=== PATIENT | female | born 1940 | race Caucasian/White ===

== ENCOUNTER 2017-09-17 23:25 | Observation (INO) | payer MEDICARE, OTHER ==
[2017-09-17 23:57] LABS: #Basophils 0.1 thou/uL (0.0-0.2); #Eosinphils 0.4 thou/uL (0.0-0.7); #Monocytes 0.6 thou/uL (0.11-0.59); #Neutrophils 5.9 thou/uL (1.40-6.50); %Basophils 1.4 % (0.0-1.0); %Eosinophils 4.3 % (0.0-10.0); %Lymphocytes 21.8 % (21.0-51.0); %Monocytes 7.1 % (0.0-10.0); %Neutrophils 65.4 % (42.0-75.0); Hemoglobin 11.7 g/dL (12.0-16.0); Mean Corpuscular HGB CONC 33.8 g/dL (32.0-36.0); Mean Corpuscular Volume 85.7 fl (81.0-99.0); Mean Platelet Volume 7.4 fL (7.4-10.4); Platelet Count 222 thou/uL (130-400); RBC Distribution Width 13.7 % (11.5-14.5); Red Blood Cell (RBC) Count 4.03 mill/uL (4.20-5.40)
[2017-09-18 00:13] LABS: CKMB 3.4 ng/mL (0-6.6); Troponin I 0.035 ng/mL (< 0.028)
[2017-09-18 00:17] LABS: ALT (SGPT) 13 U/L (8-55); AST (SGOT) 25 U/L (5-34); Albumin 3.8 g/dL (3.4-4.8); Alkaline Phosphatase 82 U/L (40-150); Anion Gap 15 mmol/L (10-20); BUN (Urea Nitrogen) 26 mg/dL (9.8-20.1); Bilirubin, Total 0.2 mg/dL (0.2-1.2); CK (CPK) 135 U/L (29-168); Calc. Creatinine Clearance 0 mL/min (70-130); Calcium 9.1 mg/dL (7.8-10.44); Carbon Dioxide 19 mmol/L (23-31); Chloride 108 mmol/L (98-107); Estimated GFR-MDRD Greater than 90; Globulin 2.4 g/dL (2.4-3.5); Glucose 93 mg/dL (83-110); Lipase 40 U/L (8-78); Potassium 4.2 mmol/L (3.5-5.1); Protein, Total 6.2 g/dL (6.0-8.3); Sodium 138 mmol/L (136-145)
[2017-09-18 01:46] LABS: Bilirubin Negative (Negative); Blood, Urine Negative (Negative); Clarity Clear (Clear); Glucose, Urine (Dipstick) Negative (Negative); Leukocyte Small (Negative); Nitrite Negative (Negative); Protein, Urine (Dipstick) Negative (Neg-Trace); Urobilinogen 0.2 mg/dL (0.2-1.0)
[2017-09-18 01:47] LABS: Specific Gravity, Urine 1.009 (1.002-1.036)
[2017-09-18 01:57] LABS: Bacteria/HPF None Seen HPF (None Seen); Hyaline Casts/LPF NONE SEEN LPF (0-3 Hyaline); RBC/HPF None Seen HPF (0-3); Renal Epithelial None Seen HPF (0-3); Squamous Epithelial 0-3 HPF (0-3); Transitional Epithelial 0-3 HPF (0-3)
[2017-09-18 03:07] VITALS: BMI 29.7
[2017-09-18 07:02] LABS: Troponin I 0.025 ng/mL (< 0.028)
--- NOTE | 2017-09-18 08:01 | HP ---
ADMITTING PHYSICIAN: Mitchel Fountain M.D. HISTORY OF PRESENT ILLNESS: The patient is a 77-year-old female who presented to the emergency room complaining of epigastric pain, maybe some chest pain radiating up to her chest. She felt lightheade d, felt somewhat woozy in the morning. Denied any nausea, vomiting, diarrhea. Upon arrival to the mergency room, she received 4 aspirin. She has not noted any further chest pain or discomfort. She has no prior history of atherosclerotic coronary artery disease. 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 She has never had any type of a stroke. She christianson s no significant cardiac risk factors, she is not hypertensive, nor does she suffer from hypercholest erolemia. Upon arrival to the ER, her first troponin was indeterminate, mildly elevated. Second troponin and t hird troponin were normal. EKG revealed normal sinus rhythm. At this time, she is not complaining o f any chest pain, no fever, no nausea, vomiting, diarrhea. ALLERGIES: She has no known allergies. CURRENT PRESCRIPTION MEDICATIONS: None. PAST MEDICAL HISTORY: Otherwise, negative for thyroid disease, type 2 diabetes, hypertension, hyperc holesterolemia. PAST SURGICAL HISTORY: Positive for hysterectomy, tonsillectomy, multiple joint replacement surgerie s. FAMILY HISTORY: Noncontributory. SOCIAL AND PERSONAL HISTORY: She is . She does not smoke nor does she drink alcohol. PHYSICAL EXAMINATION: VITAL SIGNS: Temperature 97.7, BP 167/79, O2 sat 97% on room air. GENERAL: She is alert, active, in no acute distress. HEENT: Normocephalic, atraumatic. Extraocular muscles are intact. Sclerae and conjunctivae are elvis ar. Throat clear. NECK: Supple, full range of motion, no masses, no bruits. LUNGS: Clear. HEART: Regular rate and rhythm without murmur, gallops or rubs. ABDOMEN: Reveals some mild right upper quadrant tenderness without evidence of rebound or guarding. NEUROLOGIC: She is alert and oriented x3. She is able to move all extremities. LABORATORY: Hemoglobin 11.7, hematocrit 34.5, sodium 138, potassium 4.2, chloride 108, CO2 19, BUN 2 6, creatinine 0.6. Initial troponin was 0.35, which was mildly elevated. They have now normalized. Urinalysis otherwise clear. Chest x-ray is clear. EKG reveals sinus rhythm. IMPRESSION: A 77-year-old female who is feeling lightheaded and woozy with some symptoms related to epigastric and lower chest pain. PLAN: We will do an EKG, Cardiolite stress test today. Further recommendations depending on the str ess test.
[2017-09-18] MEDS: Calcium Citrate 950 MG TAB PO SCH ×3 (08:16→17:08)
--- NOTE | 2017-09-18 08:39 | RAD ---
PORTABLE UPRIGHT FRONTAL CHEST: Date: 09/18/17 COMPARISON: 03/28/14. HISTORY: Headache, vertigo. FINDINGS: Incompletely assessed cervical spine hardware is present. Linear density in left base suggests mild v olume loss. Mild diffuse increased linear interstitial densities noted bilaterally, stable. No pneumo thorax, pleural fluid, focal consolidation, or alveolar edema. Elevation of bilateral humeral head suggests underlying rotator cuff tears. There is prominent bilate ral AC joint degenerative change. IMPRESSION: Chronic findings as described above. No focal consolidation or alveolar edema. POS: [facility]
[2017-09-18] MEDS ORDERED: FOLIC ACID PO SCH (09:00)
[2017-09-18] MEDS ORDERED: [UNRECOGNIZED DRUG - OTHER] PO SCH (09:00)
[2017-09-18] MEDS ORDERED: Aspirin 325 MG TAB PO SCH (09:00)
[2017-09-18] MEDS ORDERED: VITAMIN B COMPLEX PO SCH (09:00)
[2017-09-18] MEDS ORDERED: Stress 600 With Zinc 1 TAB PO SCH (09:00)
[2017-09-18] MEDS ORDERED: LECITHIN 1200 MG PO SCH (09:00)
[2017-09-18] MEDS ORDERED: ADENOSINE 60 MG/20 ML VIAL ONE (10:50)
[2017-09-18 15:34] VITALS: TEMP 97.5
--- NOTE | 2017-09-18 16:21 | NM ---
CARDIAC SPECT: CLINICAL HISTORY: 77-year-old female with chest pain, hypertension, diabetes, dyslipidemia. TECHNIQUE: A myocardial perfusion scan was performed using the single isotope one day protocol with technetium-9 9m sestamibi. 9 mCi were injected intravenously for the rest exam followed by 27 mCi for the stress e xam. Pharmacologic stress with Adenosine was monitored and interpreted by Diane Mittal NP. FINDINGS: Homogeneous tracer distribution is seen in the myocardial segments on stress and rest images without fixed or reversible defects. GATED SPECT LVEF: 69%. WALL MOTION EXAM: Normal. IMPRESSION: Normal myocardial perfusion scan. POS: [facility]
[2017-09-18] MEDS ORDERED: Amlodipine 5 MG TAB PO SCH (17:00)
[2017-09-18 18:27] VITALS: BP 152/71
[2017-09-18] MEDS ORDERED: Non-Formulary Item 1 EACH (Fish Oil/Dha/Epa [Fish Oil 1,200 Mg Fish Oil] 1 CAP) PO SCH (21:00)
[2017-09-18] MEDS ORDERED: Fish Oil 1,000 MG CAP PO SCH (21:00)
== END 2017-09-18 19:01 | disposition home or self-care (01) ==
LOC: SCSER 23:25 → 2SW 09-18 00:50
PROVIDERS: ADMIT Family Medicine; ATTEND Family Medicine
DX: R07.9 Chest pain, unspecified (principal); R10.13 Epigastric pain; R42 Dizziness and giddiness; Z79.899 Other long term (current) drug therapy
CPT/HCPCS: 71045; 78452; 80053; 82550; 82553; 83690; 83880; 84484 ×3; 85025; 93005; 93017; 94760; 99285; A9500; G0378; 36415; 81003; 81015; J0153

== ENCOUNTER 2018-04-02 10:01 | Outpatient (CLI) | payer MEDICARE, OTHER ==
--- NOTE | 2018-04-02 11:49 | RAD ---
FOUR VIEWS OF THE CERVICAL SPINE: Comparison: 10-16-15 History: Status post fusion of the cervical spine. FINDINGS: AP, lateral, swimmer's and open mouth odontoid views of the cervical spine were performed. Patient is status post fusion of C4 through C7. The previously seen plate and screws spanning C4 through C5 hav e been removed. There is a plate and screw spanning C6 and C7. Disc spacers are seen in intervening d isc spaces and appear in good position. Radiopaque structures are seen posteriorly which may represen t devices for fusion of the posterior facets. No prevertebral soft tissue swelling is seen. Residual due to degenerative change is seen at C2-3. IMPRESSION: Status post fusion of the cervical spine without evidence of complication. POS: [facility]
== END 2018-04-02 10:02 | disposition home or self-care (01) ==
LOC: TBSIIMAG 10:01
PROVIDERS: ATTEND Neurological Surgery
DX: M54.13 Radiculopathy, cervicothoracic region (principal); Z98.1 Arthrodesis status
CPT/HCPCS: 72040

== ENCOUNTER 2018-09-23 03:33 | Emergency (ER) | payer MEDICARE, OTHER | END 2018-09-23 04:03 | disposition home or self-care (01) | LOC: SCSER 03:33 | DX: Z48.00 Encounter for change or removal of nonsurgical wound dressing (principal); Z79.891 Long term (current) use of opiate analgesic | CPT/HCPCS: 99282 ==

== ENCOUNTER 2018-11-18 22:43 | Inpatient (IN) | payer MEDICARE, OTHER ==
[2018-11-18 23:48] LABS: #Lymphocytes 0.6 thou/uL (1.20-3.40); #Monocytes 0.8 thou/uL (0.11-0.59); #Neutrophils 10.6 thou/uL (1.40-6.50); %Basophils 0.4 % (0.0-1.0); %Eosinophils 0.1 % (0.0-10.0); %Lymphocytes 5.2 % (21.0-51.0); %Monocytes 6.5 % (0.0-10.0); %Neutrophils 87.9 % (42.0-75.0); Hemoglobin 14.4 g/dL (12.0-16.0); Mean Corpuscular Hemoglobin 30.1 pg (27.0-31.0); Mean Corpuscular Volume 91.2 fL (78.0-98.0); Mean Platelet Volume 8.3 fL (7.4-10.4); Platelet Count 201 thou/uL (130-400); RBC Distribution Width 13.1 % (11.5-14.5); Red Blood Cell (RBC) Count 4.78 mill/uL (4.20-5.40); White Blood Cell (WBC) Count 12.1 thou/uL (4.8-10.8)
--- NOTE | 2018-11-19 00:10 | RAD ---
FRONTAL RADIOGRAPH CHEST: 11/18/2018 HISTORY: Weakness. COMPARISON: 04/02/2018 FINDINGS: Stable heart and mediastinal contours. Stable cervical spine and right shoulder postoperative hardwa re. There is mild hyperinflation, stable. Heart and mediastinal contours are unchanged. No pneumot horax, pleural fluid, focal consolidation, or alveolar edema. IMPRESSION: No acute findings. POS: [facility]
[2018-11-19 00:12] LABS: ALT (SGPT) 15 U/L (8-55); AST (SGOT) 19 U/L (5-34); Albumin 4.1 g/dL (3.4-4.8); Alkaline Phosphatase 83 U/L (40-150); Anion Gap 17 mmol/L (10-20); BUN (Urea Nitrogen) 14 mg/dL (9.8-20.1); Bilirubin, Total 1.4 mg/dL (0.2-1.2); CK (CPK) 123 U/L (29-168); Calc. Creatinine Clearance 0 mL/min (70-130); Calcium 9.6 mg/dL (7.8-10.44); Carbon Dioxide 21 mmol/L (23-31); Chloride 104 mmol/L (98-107); Estimated GFR-MDRD Greater than 90; Globulin 2.3 g/dL (2.4-3.5); Glucose 133 mg/dL (83-110); Lipase 14 U/L (8-78); Potassium 3.5 mmol/L (3.5-5.1); Protein, Total 6.4 g/dL (6.0-8.3); Sodium 138 mmol/L (136-145)
[2018-11-19 00:33] LABS: CKMB 1.9 ng/mL (0-6.6)
[2018-11-19 01:00] LABS: Bacteria/HPF 2+ HPF (None Seen); Bilirubin Negative (Negative); Blood, Urine 2+ (Negative); Clarity Turbid (Clear); Glucose, Urine (Dipstick) Normal (Negative); Leukocyte 500 Leu/uL (Negative); Nitrite 2+ (Negative); Protein, Urine (Dipstick) 70 mg/dL (Neg-Trace); Squamous Epithelial None Seen HPF (0-3); Urobilinogen Normal mg/dL (Less than 2); WBC/HPF Greater than 50 HPF (0-3)
[2018-11-19] MEDS ORDERED: cefTRIAXone\\ROCEPHIN 1 GM VIAL ONE (01:18)
[2018-11-19] MEDS ORDERED: Sodium Chloride 0.9% 1,000 ML IV SCH (03:18)
[2018-11-19] MEDS ORDERED: Ondansetron PF 4 MG/2 ML Vial IVP PRN (03:18)
[2018-11-19] MEDS ORDERED: Ondansetron ODT 4 MG TAB SL PRN (03:18)
[2018-11-19 03:45] VITALS: BMI 28.7
--- NOTE | 2018-11-19 08:09 | ULT ---
PRELIMINARY REPORT/[facility]/EMERGENCY AFTER HOURS PROCEDURE: EXAM: US Duplex Bilateral Lower Extremity Veins EXAM DATE/TIME: 11/18/2018 11:44 PM CLINICAL HISTORY: 78 years old, female; Edema, localized; Lower extremity, bilateral; Leg, lower; Prior surgery; Surger y date: 6+ months; Surgery type: Ble knee replacement - 1996; Patient HX: Ble pain/edema; Additional info: Carpal tunnel surgery 10/09 TECHNIQUE: Imaging protocol: Real-time duplex ultrasound of the Bilateral Lower Extremities with 2-D joseph scale, color Doppler flow and spectral waveform analysis with image documentation. Complete exam focused on the bilateral lower extremity veins. COMPARISON: No relevant prior studies available. FINDINGS: Right deep veins: Unremarkable. The common femoral, femoral, proximal profunda femoral and popliteal veins are patent without thrombus. Normal Doppler waveforms. Normal compressibility and/or augmentati on response. Right superficial veins: Saphenofemoral junction is patent without thrombus. Left deep veins: Unremarkable. The common femoral, femoral, proximal profunda femoral and popliteal v eins are patent without thrombus. Normal Doppler waveforms. Normal compressibility and/or augmentatio n response. Left superficial veins: Saphenofemoral junction is patent without thrombus. Soft tissues: Superficial edema. IMPRESSION: 1. Superficial edema. 2. No DVT. Thank you for allowing us to participate in the care of your patient. Dictated and Authenticated by: Kaden Jarrett MD 11/19/2018 12:34 AM Central Time ([place] & [place]) FINAL REPORT BILATERAL LOWER EXTREMITY VENOUS DOPPLER ULTRASOUND: Date: 11/18/18 FINDINGS/IMPRESSION: I agree with the preliminary report given by Lenka. POS: [facility]
--- NOTE | 2018-11-19 10:48 | HP ---
HISTORY OF PRESENT ILLNESS: The patient is a 78-year-old white female, who presented to the emergency room, complains of lower extremity weakness, fever, body aches, and chills. She states she has became unable to walk due to being weak. She has some associated flushing, some nausea, discolored urine. No dysuria or hematuria, otherwise noted. She was seen and evaluated in the ER. Evaluation showed a diagnosis of urinary tract infection with greater than 50 wbc's per high-power field. Once again, she did not note any dysuria or hematuria. She did note extremely cloudy urine, some foul odor to her urine. She has been noting symptoms now for approximately 24 hours. Additionally, in the ER, she had an ultrasound done of her extremities, which showed no evidence of any DVT. She has had recent history of multiple surgeries including most recent surgery for her shoulder, but it has been uneventful recovery thus far. She denies any cough, sore throat, or vomiting. She has noted some slight diarrhea. No chest pain. No shortness of breath. Currently, at this time she states she is feeling much better. ALLERGIES: SHE HAS NO KNOWN ALLERGIES. PAST MEDICAL HISTORY: Positive for hypertension. PAST SURGICAL HISTORY: Positive for multiple orthopedic procedures including both bilateral knees, bilateral hip, left shoulder replacement. She has also had hysterectomy, tonsillectomy. FAMILY HISTORY: Noncontributory. REVIEW OF SYSTEMS: GASTROINTESTINAL: Negative. GENITOURINARY: Positive as above. PULMONARY: Negative. CARDIOVASCULAR: Otherwise, negative. NEUROLOGIC: Negative. PHYSICAL EXAMINATION: VITAL SIGNS: Temperature 99.1, blood pressure 158/70, pulse 86, respirations 18, and O2 saturations 95%. GENERAL: She is alert, active, sitting at the side of the bed. Does not appear in any distress. HEENT: Normocephalic. Sclerae and conjunctivae are clear. NECK: Supple. Full range of motion. No masses. No bruits auscultated. Thyroid is midline without thyromegaly or thyroid masses. LUNGS: Clear. HEART: Reveals a regular rate and rhythm. No murmurs, gallops, or rubs. ABDOMEN: Soft and nontender. Bowel sounds present and active. No hepatosplenomegaly is noted. EXTREMITIES: No clubbing. Trace edema bilaterally. No evidence of any significant leg tenderness, calf tenderness. LABORATORY DATA: White blood count 12.1, hemoglobin 14.4, and hematocrit 43.6. Sodium 135, potassium 3.5, chloride 104, CO2 of 21, BUN 14, and creatinine 0.61. Urinalysis, greater than 50 wbc's per high-power field, 2+ bacteria. IMAGING DATA: Chest x-ray is clear. IMPRESSION: Urinary tract infection with fever. PLAN: The patient will be admitted. Continue on IV Levaquin at this time, which she is currently on. I have discussed the findings with the patient and the need for hospitalization. Job ID: [id number]
--- NOTE | 2018-11-20 12:19 | PRG ---
DATE OF SERVICE: 11/20/2018 SUBJECTIVE: Ms. Todd is resting well. She has no medical complaints. OBJECTIVE: VITAL SIGNS: Temperature 99.3, BP 149/77, and O2 saturation 97%. LUNGS: Clear. HEART: Reveals no murmur. LABORATORY DATA: Her blood cultures are positive for gram-negative rods, presumptive E. coli. Urine culture is positive for presumptive E. coli. IMPRESSION: Urinary tract infection/sepsis. PLAN: Continue Levaquin. Awaiting susceptibility studies. Job ID: [id number]
[2018-11-21 07:50] VITALS: BP 162/83; TEMP 98.3
--- NOTE | 2018-11-21 10:02 | PRG ---
DATE OF SERVICE: 11/21/2018 SUBJECTIVE: Ms. Todd is doing well. She reports no fever, no chest pain, no shortness of breath. No nausea, vomiting, or diarrhea. Urine cultures are positive for E coli. Blood culture is also positive for E coli, sensitive to Levaquin, which she is currently on. OBJECTIVE: LUNGS: Clear. HEART: Reveals a regular rate and rhythm. No murmurs, gallops, or rubs. IMPRESSION: Urinary tract infection with sepsis. PLAN: She can be discharged home safely today on Levaquin 500 mg p.o. daily. Job ID: [id number]
--- NOTE | 2018-11-21 10:51 | DIS ---
DATE OF ADMISSION: 11/19/2018 DATE OF DISCHARGE: 11/21/2018 DISCHARGE DIAGNOSIS: Urinary tract infection with sepsis. HOSPITAL SUMMARY: The patient is a 78-year-old female who presented to the emergency room complaining of fever, body aches, and chills. She was found to have urinary tract infection. Blood cultures were obtained as well as urine cultures. Urine culture was positive for E coli, sensitive to quinolone antibiotic. She was actually placed on IV Levaquin. Her blood culture was positive during her hospitalization. She did not run any further fever. No other findings were noted. She was discharged home safely on 11/21/2018 on Levaquin 500 mg daily. She will follow up with me in 7 days. Job ID: [id number]
== END 2018-11-21 11:08 | disposition home or self-care (01) | DRG 872 ==
LOC: ERS 22:43 → T4-B 11-19 02:54
PROVIDERS: ADMIT Family Medicine; ATTEND Family Medicine
DX: A41.51 Sepsis due to Escherichia coli [E. coli] (principal); N39.0 Urinary tract infection, site not specified; Z16.23 Resistance to quinolones and fluoroquinolones; I10 Essential (primary) hypertension; Z90.710 Acquired absence of both cervix and uterus; Z79.82 Long term (current) use of aspirin; Z79.899 Other long term (current) drug therapy
CPT/HCPCS: 36415; 71045; 80053; 81003; 81015; 82550; 82553; 83605; 83690; 83880; 84484; 85025; 87040; 87077; 87086; 87149; 87186; 93005; 93970; A4353; J0696; J1956

== ENCOUNTER 2019-03-07 17:07 | Inpatient (IN) | payer MEDICARE ==
[2019-03-07 18:13] LABS: Bilirubin Negative (Negative); Blood, Urine Large (Negative); Clarity Hazy (Clear); Glucose, Urine (Dipstick) Negative (Negative); Leukocyte Small (Negative); Nitrite Positive (Negative); Protein, Urine (Dipstick) > or equal to 300 mg/dL (Neg-Trace); Urobilinogen 0.2 mg/dL (Less than 2)
[2019-03-07] MEDS ORDERED: Acetaminophen 500 MG TAB ONE (18:17)
[2019-03-07 18:19] LABS: Bacteria/HPF 4+ HPF (None Seen); WBC/HPF 21-50 HPF (0-3)
--- NOTE | 2019-03-07 18:34 | RAD ---
PA AND LAERAL VIEWS CHEST: 03/07/19 HISTORY: Fever and UTI. FINDINGS: Comparison made with exam of 03/28/14. The heart size is borderline. The aorta is tortuous. The lungs are expanded without lobar consolidati on, pneumothoraces or pleural effusions. There are postop changes in the right shoulder and there are degenerative changes in the spine. IMPRESSION: No acute process. POS: [facility]
[2019-03-07 18:56] LABS: Hemoglobin 14.1 g/dL (12.0-16.0); Mean Corpuscular HGB CONC 31.9 g/dL (32.0-36.0); Mean Corpuscular Hemoglobin 28.5 pg (27.0-31.0); Mean Corpuscular Volume 89.2 fL (78.0-98.0); Mean Platelet Volume 12.1 fL (7.4-10.4); Platelet Count 178 thou/uL (130-400); RBC Distribution Width 12.7 % (11.5-14.5); Red Blood Cell (RBC) Count 4.95 mill/uL (4.20-5.40); White Blood Cell (WBC) Count 12.5 thou/uL (4.8-10.8)
[2019-03-07] MEDS ORDERED: cefTRIAXone\\ROCEPHIN 2 GM VIAL ONE (18:56)
[2019-03-07] MEDS ORDERED: Water For Inject, Bacteriostat 30 ML ONE (18:57)
[2019-03-07 19:07] LABS: ALT (SGPT) 15 U/L (8-55); AST (SGOT) 21 U/L (5-34); Alkaline Phosphatase 88 U/L (40-110); Anion Gap 16 mmol/L (10-20); BUN (Urea Nitrogen) 19 mg/dL (9.8-20.1); Bilirubin, Total 0.7 mg/dL (0.2-1.2); Calc. Creatinine Clearance 0 mL/min (70-130); Calcium 9.4 mg/dL (7.8-10.44); Carbon Dioxide 21 mmol/L (23-31); Chloride 101 mmol/L (98-107); Estimated GFR-MDRD 76; Glucose 124 mg/dL (83-110); Potassium 3.8 mmol/L (3.5-5.1); Sodium 134 mmol/L (136-145)
[2019-03-07 19:10] LABS: #Basophils 0.1 thou/uL (0.0-0.2); #Lymphocytes 0.7 thou/uL (1.20-3.40); #Monocytes 0.9 thou/uL (0.11-0.59); #Neutrophils 10.8 thou/uL (1.40-6.50); %Basophils 0.7 % (0.0-1.0); %Eosinophils 0.1 % (0.0-10.0); %Lymphocytes 5.9 % (21.0-51.0); %Neutrophils 86.4 % (42.0-75.0); Large Platelets SLIGHT; MDiff Complete? YES; Platelet Morphology Comment Appears Adequate; RBC Morphology Normal
[2019-03-07] MEDS ORDERED: Gentamicin 80 MG/2 ML VIAL ONE (19:41)
[2019-03-07] MEDS ORDERED: Acetaminophen 325 MG TAB PO PRN (21:56)
[2019-03-07] MEDS ORDERED: Ondansetron PF 4 MG/2 ML Vial IVP PRN (21:56)
[2019-03-07] MEDS ORDERED: Ondansetron ODT 4 MG TAB SL PRN (21:56)
[2019-03-07 22:10] VITALS: BMI 29.6
[2019-03-08] MEDS ORDERED: Ondansetron ODT 4 MG TAB PO PRN (00:15)
[2019-03-08] MEDS ORDERED: Ondansetron PF 4 MG/2 ML Vial IVP PRN (00:15)
[2019-03-08] MEDS: Sodium Chloride 0.9% 1,000 ML IV SCH ×3 (00:29→12:40)
--- NOTE | 2019-03-08 01:16 | HP ---
PRIMARY CARE PROVIDER: Dr. Mitchel Fountain. CHIEF COMPLAINT: Dark urine and fever. HISTORY OF PRESENT ILLNESS: This is a 78-year-old female, who presented to [facility] Emergency Department after initially presenting to [facility] Emergency Room with dysuria, malodorous urine, and fever. The patient states she noted a temperature of 101 degrees Fahrenheit when she was at a physician's office in [place]. The patient noted darkened urine approximately 2 weeks prior to this evaluation with persistent malodorous component. The patient denied any change to her bowel habits, recent trauma, injury, or family members with similar symptoms. The patient states she was admitted in November 2018 for sepsis secondarily to urinary tract infection and treated with IV Levaquin. The patient did not take any home medications or remedies, and presented to the emergency room for evaluation. In the emergency room, the patient underwent evaluation with urinalysis concerning for infectious process. The patient met sepsis criteria and received intravenous normal saline in addition to gentamicin, vancomycin and Rocephin. PAST MEDICAL HISTORY: 1. Recurrent urinary tract infections. 2. Question of hypertension without current treatment. PAST SURGICAL HISTORY: 1. Status post bilateral total knee arthroplasty. 2. Status post bilateral total hip arthroplasty. 3. Status post left shoulder replacement. 4. Status post hysterectomy. 5. Status post tonsillectomy. CURRENT MEDICATIONS: Aspirin 81 mg p.o. at bedtime. ALLERGIES: NO KNOWN DRUG ALLERGIES. FAMILY HISTORY: No inheritable disease per patient report. SOCIAL HISTORY: Resides in [place], [place]. . No current alcohol, tobacco, or illicit drug use. Retired. REVIEW OF SYSTEMS: CONSTITUTIONAL: Negative for weight loss or gain, ability to conduct usual activities. SKIN: Negative for rash, itching. EYES: Negative for double vision, pain. ENT/MOUTH: Negative for nose bleeding, neck stiffness, pain, tenderness. CARDIOVASCULAR: Negative for palpitations, dyspnea on exertion, orthopnea. RESPIRATORY: Negative for shortness of breath, wheezing, cough, hemoptysis, fever or night sweats. GASTROINTESTINAL: Negative for poor appetite, abdominal pain, heartburn, nausea, vomiting, constipation, or diarrhea. GENITOURINARY: Negative for urgency, frequency, dysuria, nocturia. MUSCULOSKELETAL: Negative for pain, swelling. NEUROLOGIC/PSYCHIATRIC: Negative for anxiety, depression. ALLERGY/IMMUNOLOGIC: Negative for skin rash, bleeding tendency. Otherwise negative except as stated per HPI. PHYSICAL EXAMINATION: VITAL SIGNS: On admission, blood pressure 183/101, pulse 95, respiratory rate 31, temperature 103.4 degrees Fahrenheit rectally. GENERAL APPEARANCE: This is a 78-year-old female, alert and oriented x3, pleasant, in mild distress. HEENT: Pupils are equal, round, reactive to light and accommodation. Extraocular muscles are intact. No scleral icterus. No conjunctival injection. Nares patent. OP is clear. Oral mucosa is dry. NECK: Supple. No cervical adenopathy. No thyromegaly. No carotid bruits. No JVD appreciated. Cervical spine with full active and passive range of motion. No meningeal signs noted. CHEST: Lungs are clear to auscultation bilaterally. CARDIOVASCULAR: S1, S2 without noted murmur, rub, or gallop. ABDOMEN: Rounded, soft, nontender, and nondistended. Bowel sounds are positive in all 4 quadrants. There is no hepatosplenomegaly. No abdominal bruits. No rebound or guarding appreciated. EXTREMITIES: Warm and dry with fair turgor. No clubbing, cyanosis, or asymmetric edema appreciated. Pulses palpable distally at the dorsalis pedis, posterior tibial, and popliteal arteries bilaterally. Capillary refill less than 2 seconds. NEUROLOGIC: Cranial nerves 2 through 12 are grossly intact. No focal or lateralizing signs appreciated. PERTINENT LABORATORY AND X-RAY FINDINGS: Sodium 134, potassium 3.8, chloride 101, CO2 of 21, BUN 19, creatinine 0.74, estimated GFR 76, glucose 124, lactic acid level 1.5. LFTs within normal limits. CBC showed a white blood cell count of 12.5, hemoglobin 14, hematocrit 44, platelet count 178 with 86% neutrophils. Urinalysis is positive for protein, blood, nitrite and leukocyte esterase, 21 to 50 wbc's per high-power field with 4+ bacteria. Portable chest x-ray dated 03/07/2019, showed no acute cardiopulmonary process. ASSESSMENT AND PLAN: 1. Sepsis secondary to urinary tract infection. The patient will be admitted to the medical floor. We will continue IV Rocephin 2 g q.24 hours with additional vancomycin 1.25 g IV q.12 hours. Blood and urine cultures pending. Continue general sepsis protocol. Continue IV fluids with normal saline at 100 mL/h. 2. Acute kidney injury. Suspect secondary to sepsis and volume depletion. Continue IV fluids as outlined previously. Avoid nephrotoxic agents and limit contrast exposure. Repeat creatinine in the a.m. 3. Dehydration. Continue IV fluids as outlined previously. Encourage increased p.o. free water intake. 4. Hyponatremia. Mild. Continue IV fluids as outlined previously. Serial sodium monitoring. 5. Prophylaxis. SCDs while in bed. Pepcid 20 mg p.o. b.i.d. CODE STATUS: Full. Surrogate medical decision maker is the patient's spouse. Job ID: [id number]
[2019-03-08 06:54] LABS: Anion Gap 8 mmol/L (10-20); BUN (Urea Nitrogen) 33 mg/dL (9.8-20.1); Calc. Creatinine Clearance 91 mL/min (70-130); Calcium 8.1 mg/dL (7.8-10.44); Carbon Dioxide 24 mmol/L (23-31); Chloride 108 mmol/L (98-107); Estimated GFR-MDRD Greater than 90; Glucose 118 mg/dL (83-110); Potassium 3.2 mmol/L (3.5-5.1); Sodium 137 mmol/L (136-145)
[2019-03-08 07:51] LABS: Eosinophils 2 % (0-10); Hemoglobin 11.3 g/dL (12.0-16.0); Lymphocytes 2 % (21-51); MDiff Complete? YES; Mean Corpuscular HGB CONC 33.4 g/dL (32.0-36.0); Mean Corpuscular Hemoglobin 29.7 pg (27.0-31.0); Mean Corpuscular Volume 88.7 fL (78.0-98.0); Mean Platelet Volume 8.4 fL (7.4-10.4); Monocytes 7 % (0-10); Neutrophil 85 % (42-75); Platelet Count 146 thou/uL (130-400); RBC Distribution Width 12.2 % (11.5-14.5); Reactive Lymphocytes 4 % (0-10); White Blood Cell (WBC) Count 8.5 thou/uL (4.8-10.8)
[2019-03-08] MEDS: Famotidine 20 MG TAB PO SCH ×2 (08:02→20:18)
[2019-03-08] MEDS ORDERED: Vancomycin HCl 1.25 GM in Sodium Chloride 0.9% 250 ML 300 ML IVPB SCH (09:00)
[2019-03-08] MEDS ORDERED: Potassium Chloride 20 MEQ TAB PO SCH (12:30)
--- NOTE | 2019-03-08 13:02 | PDOC.HOSPP ---
- Subjective Encounter Date: 03/08/19 Encounter Time: 10:30 Subjective: pt up in bed no complains. Feels well - Objective Vital Signs & Weight: Vital Signs (12 hours) Temp Pulse Resp BP Pulse Ox 03/08/19 11:47 98.8 F 79 18 149/80 H 03/08/19 07:48 98.1 F 82 16 167/83 H 98 03/08/19 04:15 98.8 F 81 19 147/78 H 97 Weight Admit Weight 167 lb 1.6 oz Weight 167 lb 1.6 oz I&O: 03/07/19 03/08/19 03/09/19 06:59 06:59 06:59 Intake Total 1240 Balance 1240 Result Diagrams: 03/08/19 06:27 03/08/19 06:27 Hospitalist ROS - Review of Systems Respiratory: denies: cough, dry, shortness of breath, hemoptysis, SOB with excertion, pleuritic pain, sputum, wheezing, other Cardiovascular: denies: chest pain, palpitations, orthopnea, paroxysmal noc. dyspnea, edema, light headedness, other Gastrointestinal: denies: nausea, vomiting, abdominal pain, diarrhea, constipation, melena, hematochezia, other - Medication Medications: Active Medications Generic Name Dose Route Start Last Admin Trade Name Freq PRN Reason Stop Dose Admin Famotidine 20 mg 03/08/19 09:00 03/08/19 08:02 Pepcid PO 20 mg BID VANESA Administration Sodium Chloride 1,000 mls @ 100 mls/hr 03/08/19 00:15 03/08/19 12:40 Normal Saline 0.9% IV 1,000 mls .Q10H VANESA Administration Potassium Chloride 40 meq 03/08/19 12:30 03/08/19 12:39 K-Dur PO 03/08/19 15:00 40 meq NOW VANESA Administration - Exam Heart: negative: RRR, no murmur, no gallops, no rubs, normal peripheral pulses, irregular, diminshed peripheral pulses, murmur present, II/IV, III/IV Respiratory: negative: CTAB, no wheezes, no rales, no ronchi, normal chest expansion, no tachypnea, normal percussion, rales, rhonchi, tachypneic, wheezes Gastrointestinal: negative: soft, non-tender, non-distended, normal bowel sounds , no palpable masses, no hepatomegaly, no splenomegaly, no bruit, no guarding, no rigidity, tender to palpation, distended, diminished bowl sounds, voluntary guarding Hosp A/P (1) Sepsis Code(s): A41.9 - SEPSIS, UNSPECIFIED ORGANISM Status: Acute (2) UTI (urinary tract infection) Status: Acute (3) Bacteremia Code(s): R78.81 - BACTEREMIA Status: Acute - Plan will continue abx. Her previous cx indicates ecoli. will continue iv fluids too.
[2019-03-08] MEDS: Acetaminophen 500 MG TAB PO PRN (16:28)
[2019-03-08] MEDS: cefTRIAXone\\ROCEPHIN 2 GM in Sodium Chloride 0.9% 100 ML IVPB SCH (17:10)
[2019-03-08] MEDS ORDERED: Vancomycin HCl 1.25 GM in Sodium Chloride 0.9% 250 ML 250 ML IVPB SCH (20:00)
[2019-03-08] MEDS: Aspirin 81 mg Enteric Coated Tablet PO SCH (20:18)
[2019-03-09] MEDS: Sodium Chloride 0.9% 1,000 ML IV SCH (00:41)
[2019-03-09] MEDS: Famotidine 20 MG TAB PO SCH ×2 (07:44→21:08)
--- NOTE | 2019-03-09 11:41 | PDOC.HOSPP ---
- Subjective Encounter Date: 03/09/19 Encounter Time: 11:15 Subjective: pt up in bed no complains - Objective Vital Signs & Weight: Vital Signs (12 hours) Temp Pulse Resp BP BP Pulse Ox 03/09/19 07:37 98.3 F 81 18 174/93 H 97 03/09/19 07:26 98.3 F 81 18 97 03/09/19 04:00 98.2 F 71 18 143/85 H 98 03/09/19 00:00 98.7 F 68 18 157/81 H 99 Weight Admit Weight 167 lb 1.6 oz Weight 167 lb 1.6 oz I&O: 03/08/19 03/09/19 03/10/19 06:59 06:59 06:59 Intake Total 1240 3140 Balance 1240 3140 Result Diagrams: 03/08/19 06:27 03/08/19 06:27 Hospitalist ROS - Review of Systems Cardiovascular: denies: chest pain, palpitations, orthopnea, paroxysmal noc. dyspnea, edema, light headedness, other Gastrointestinal: denies: nausea, vomiting, abdominal pain, diarrhea, constipation, melena, hematochezia, other - Medication Medications: Active Medications Generic Name Dose Route Start Last Admin Trade Name Freq PRN Reason Stop Dose Admin Acetaminophen 1,000 mg 03/08/19 00:15 03/08/19 16:28 Tylenol PO 1,000 mg Q6H PRN Administration Mild Pain (1-3) Aspirin 81 mg 03/08/19 21:00 03/08/19 20:18 Ecotrin PO 81 mg HS VANESA Administration Famotidine 20 mg 03/08/19 09:00 03/09/19 07:44 Pepcid PO 20 mg BID VANESA Administration Ceftriaxone Sodium 2 gm/ 100 mls @ 200 mls/hr 03/08/19 18:00 03/08/19 17:10 Sodium Chloride IVPB 100 mls Q24HR VANESA Administration - Exam Neck: negative: supple, symmetric, no JVD, no thyromegaly, no lymphadenopathy, no carotid bruit, JVD Heart: negative: RRR, no murmur, no gallops, no rubs, normal peripheral pulses, irregular, diminshed peripheral pulses, murmur present, II/IV, III/IV Respiratory: negative: CTAB, no wheezes, no rales, no ronchi, normal chest expansion, no tachypnea, normal percussion, rales, rhonchi, tachypneic, wheezes Hosp A/P (1) Sepsis Code(s): A41.9 - SEPSIS, UNSPECIFIED ORGANISM Status: Acute (2) UTI (urinary tract infection) Status: Acute (3) Bacteremia Code(s): R78.81 - BACTEREMIA Status: Acute - Plan will continue abx. Her previous cx indicates ecoli. will continue iv fluids too. 03/09 pt may go home in am when her sensitive comes back.will stop abx
[2019-03-09] MEDS: Acetaminophen 500 MG TAB PO PRN (17:10)
[2019-03-09] MEDS: cefTRIAXone\\ROCEPHIN 2 GM in Sodium Chloride 0.9% 100 ML IVPB SCH (17:11)
[2019-03-09] MEDS: hydrALAZINE 20 MG/ML VIAL SLOW IVP PRN (17:32)
[2019-03-09] MEDS: Aspirin 81 mg Enteric Coated Tablet PO SCH (21:08)
[2019-03-10] MEDS: Acetaminophen 500 MG TAB PO PRN (07:53)
[2019-03-10] MEDS: hydrALAZINE 20 MG/ML VIAL SLOW IVP PRN (07:53)
[2019-03-10] MEDS: Famotidine 20 MG TAB PO SCH (07:53)
[2019-03-10] MEDS ORDERED: Amlodipine 5 MG TAB PO SCH (09:00)
[2019-03-10] MEDS ORDERED: Ciprofloxacin 500 MG TAB PO SCH ×2 (09:00→20:00)
[2019-03-10 13:15] VITALS: BP 170/78; TEMP 98.2
--- NOTE | 2019-03-10 19:45 | DIS ---
DATE OF ADMISSION: 03/07/2019 DATE OF DISCHARGE: 03/10/2019 PRIMARY CARE PROVIDER: Dr. Mitchel Fountain. DISCHARGE DIAGNOSES: 1. Sepsis. 2. Urinary tract infection. 3. Bacteremia. 4. Dehydration. 5. Hyponatremia. 6. Hypertensive urgency. CONDITION OF PATIENT ON THE DAY OF DISCHARGE: Stable. I assessed Ms. Todd on the day of discharge. She denies any chest pain or shortness of breath. Vital signs are stable. S1 and S2 are heard, regular. Lungs are clear to auscultation bilaterally. HOSPITAL COURSE: Ms. Todd is a pleasant 78-year-old lady, who was admitted to [facility] on 03/07/2019, for recurrent urinary tract infections. Please refer to Dr. Reardon's history and physical note dated 03/08/2019, for further details. She was treated with intravenous ceftriaxone. Preliminary urine culture is growing a gram-negative aileen. 1/2 blood cultures was positive for Escherichia coli; resistant to ampicillin, ampicillin/sulbactam, and Bactrim; intermediate sensitivity to levofloxacin and sensitive to amikacin, cefepime, cefoxitin, ceftazidime, ceftriaxone, ciprofloxacin, gentamicin, meropenem, Zosyn, and tobramycin. She is being discharged home on ciprofloxacin for 10 more days. She has been advised to follow up with primary care provider in 3 to 5 days' time for final blood culture and urine culture reports and for reassessment. Her blood pressures were elevated during this hospitalization. She has been started on amlodipine. She has also been advised to check her blood pressure and heart rate 3 times a day and show the readings to primary care provider. DISCHARGE MEDICATIONS: 1. Aspirin 81 mg daily. 2. Amlodipine 5 mg daily. 3. Ciprofloxacin 500 mg 2 times a day for 10 days. POST-DISCHARGE FOLLOWUP: The patient is advised to follow up with primary care provider in 3 to 5 days' time. ACTIVITY: No restrictions. DIET: Regular diet. DISCHARGE DESTINATION: Home. TIME SPENT: Total amount of time spent coordinating this discharge: 20 minutes. Job ID: [id number]
== END 2019-03-10 13:30 | disposition home or self-care (01) | DRG 872 ==
LOC: SCSER 17:07 → T4-B 21:52
PROVIDERS: ADMIT Internal Medicine; ATTEND Internal Medicine
DX: A41.51 Sepsis due to Escherichia coli [E. coli] (principal); N17.9 Acute kidney failure, unspecified; E87.1 Hypo-osmolality and hyponatremia; Z96.653 Presence of artificial knee joint, bilateral; Z96.643 Presence of artificial hip joint, bilateral; E86.0 Dehydration; I16.0 Hypertensive urgency; Z90.710 Acquired absence of both cervix and uterus; Z79.82 Long term (current) use of aspirin
CPT/HCPCS: 36415; 71046; 80048; 80053; 81003; 81015; 83605; 85007; 85025; 85027; 87040; 87077; 87086; 87149; 87186; 96365; 96367; 96368; J0360; J0696; J1580; J3370; J3490; J7050

== ENCOUNTER 2019-07-01 07:11 | Day surgery (SDC) | payer MEDICARE ==
[2019-06-30 10:27] VITALS: BMI 28.8
[~2019-07-01 07:11] MED LIST: FLU VACC TS2019-20(65YR UP)/PF 180 MCG/0.5 ML SYRINGE IM ONE
[2019-07-01 08:41] VITALS: TEMP 98.4
--- NOTE | 2019-07-01 10:21 | RAD ---
Lumbar puncture with fluoroscopic guidance: 07/01/2019 HISTORY: Neuropathy, possible multiple sclerosis FINDINGS: Informed consent for lumbar puncture obtained prior to the procedure. Frontal and lateral polymerization engineer imaging demonstrates bilateral pedicle screws at the L2 and L3 levels. Inte rvertebral metallic disc devices are present at L4-5 and L5-S1. There is anterolisthesis of L4 on L5 measuring approximately 1 cm. There is multilevel bone graft material within the lumbar spine post eriorly/laterally. There is also multilevel prominent degenerative disc disease with multilevel disc space narrowing and prominent osteophyte formation throughout the imaged lower thoracic spine an d upper lumbar spine. The patient was placed on the fluoroscopic table in the oblique prone position and skin overlying the lumbar spine was prepped and draped in normal sterile fashion. The skin was anesthetized with 1% buffered lidocaine at the L3 level. With intermittent fluoroscopic guidance, a 20-gauge spinal needle was advanced into the thecal sac and removal of the stylet yields clear cerebrospinal fluid. Approximately 15 cc were obtained and sent to the laboratory for assessment. The patient tolerated the procedure well. Exposure data: 1.0 minute of fluoroscopic time, 464.4 mcg/sq m IMPRESSION: Successful lumbar puncture with fluoroscopic guidance.
[2019-07-01 10:54] LABS: CSF, Glucose 62 mg/dl (40-70); CSF, Protein 82 mg/dL (15-40)
[2019-07-01 11:17] LABS: CSF Source CSF; Clarity Clear (Clear); Tube # 4
[2019-07-01 11:23] LABS: WBC/NonHematics Count - Manual 0 /cumm (0-5)
[2019-07-01 11:28] LABS: RBC Count - Manual 65 /cumm (None Seen)
[2019-07-01 14:47] LABS: Ref Lab Test Ordered CSF ELECTROPHORESIS; Reference Lab Name LABCORP
[2019-07-01 14:49] LABS: Reference Lab Name LABCORP
[2019-07-01 14:50] LABS: Ref Lab Test Ordered IGG INDEX /SYNT RATE
[2019-07-01 17:46] LABS: Color Of CSF Supernatant COLORLESS (Colorless); Tube # 1; Unspun CSF Color COLORLESS (Colorless)
== END 2019-07-01 10:55 | disposition home or self-care (01) ==
LOC: RAD 07:11
PROVIDERS: ATTEND Psychiatry & Neurology Neurology
PROC: 009U3ZZ Drainage of Spinal Canal, Percutaneous Approach (ICD-10-PCS; principal; 2019-07-01)
DX: G60.9 Hereditary and idiopathic neuropathy, unspecified (principal); Z79.82 Long term (current) use of aspirin
CPT/HCPCS: 36415; 62270; 82945; 83916; 84157; 84165; 89051

== ENCOUNTER 2019-07-27 15:24 | Observation (INO) | payer MEDICARE ==
[~2019-07-27 15:24] MED LIST changes: -FLU VACC TS2019-20(65YR UP)/PF 180 MCG/0.5 ML SYRINGE IM ONE; +Iopamidol-370 76% 500 ML 1 ML ONE
[2019-07-27] MEDS ORDERED: Cefepime 2 GM VIAL ONE (15:46)
[2019-07-27] MEDS ORDERED: Vancomycin 1 GM/200 ML BAG ONE (15:46)
[2019-07-27 16:08] LABS: #Basophils 0.1 thou/uL (0.0-0.2); #Eosinphils 0.5 thou/uL (0.0-0.7); #Lymphocytes 1.5 thou/uL (1.20-3.40); #Monocytes 1.1 thou/uL (0.11-0.59); #Neutrophils 8.7 thou/uL (1.40-6.50); %Basophils 0.5 % (0.0-1.0); %Eosinophils 4.3 % (0.0-10.0); %Lymphocytes 12.5 % (21.0-51.0); %Monocytes 8.9 % (0.0-10.0); %Neutrophils 73.8 % (42.0-75.0); Hemoglobin 12.1 g/dL (12.0-16.0); Mean Corpuscular HGB CONC 32.3 g/dL (32.0-36.0); Mean Corpuscular Volume 86.5 fL (78.0-98.0); Mean Platelet Volume 7.3 fL (7.4-10.4); Platelet Count 427 thou/uL (130-400); RBC Distribution Width 14.4 % (11.5-14.5); Red Blood Cell (RBC) Count 4.32 mill/uL (4.20-5.40); White Blood Cell (WBC) Count 11.8 thou/uL (4.8-10.8)
[2019-07-27 16:23] LABS: ALT (SGPT) 23 U/L (8-55); AST (SGOT) 28 U/L (5-34); Albumin 3.6 g/dL (3.4-4.8); Alkaline Phosphatase 94 U/L (40-110); Anion Gap 14 mmol/L (10-20); BUN (Urea Nitrogen) 14 mg/dL (9.8-20.1); Bilirubin, Total 0.3 mg/dL (0.2-1.2); Calc. Creatinine Clearance 0 mL/min (70-130); Calcium 9.4 mg/dL (7.8-10.44); Carbon Dioxide 24 mmol/L (23-31); Chloride 104 mmol/L (98-107); Estimated GFR-MDRD Greater than 90; Globulin 3.5 g/dL (2.4-3.5); Glucose 96 mg/dL (83-110); Potassium 3.8 mmol/L (3.5-5.1); Protein, Total 7.1 g/dL (6.0-8.3); Sodium 138 mmol/L (136-145)
--- NOTE | 2019-07-27 18:14 | CT ---
CT OF RIGHT TIBIA/FIBULA PERFORMED WITH CONTRAST ENHANCEMENT: History: Patient has a right leg wound that has not been healing well. The redness and swelling has w orsened. More drainage from the wound. FINDINGS: Imaging was begun just at the level of the distal femur. A total knee prosthesis obscures detail in t his region. There is subcutaneous edema change consistent with cellulitis type changes which actually appear fairly similar to the visualized portion of the opposite extremity. I see no signs of an absc ess collection. Soft tissue wound is seen along the lateral aspect of the ankle region. I see no evid ence for osteomyelitis. There is somewhat generalized muscle atrophy but no signs for compartment syn drome. IMPRESSION: Cellulitis changes. No abscess or air within the soft tissues. POS: EULALIO
[2019-07-27] MEDS ORDERED: Acetaminophen 325 MG TAB PO PRN (20:47)
[2019-07-27] MEDS ORDERED: Acetaminophen 650 MG Suppository PR PRN (20:47)
--- NOTE | 2019-07-27 21:19 | PDOC.HHP ---
Hospitalist HPI - History of Present Illness right leg swelling and redness History of Present Illness: Patient presents complaining of increasing right leg swelling and redness with a new area of bruising above two wounds on the right lower leg that are now draining purulent fluid. Patient states she saw Dr. Fountain her PCP on the 03 of July and was started on Cipro. She had no significant improvement and was given an additional course. She has been had dressing changes every other day, seen by wound care, and today the wounds were foul smelling with green discharge. She has redness and swelling involving her foot and extending up to just below her knee. She was advised to come in due to failure of outpatient antibiotics. Reports being afebrile at home. ED Course: Started on IV antibiotics (Vanc and cefepime). Wound culture and blood cultures obtained. She had labs done showing a WCC of 11.8, Hgb 12.1, Hct 37.3, Platelets 427, Neutrophils 73.8%. Lactic acid 1.0, renal function normal. CMP otherwise unremarkable. CT of the RLE showed cellulitis. No abscess or air within soft tissues. Hospitalist ROS - Review of Systems Constitutional: denies: fever, chills, sweats, weakness, malaise, other Eyes: denies: pain, vision change, conjunctivae inflammation, eyelid inflammation, redness, other ENT: denies: ear pain, ear discharge, nose pain, nose discharge, nose congestion , mouth pain, mouth swelling, throat pain, throat swelling, other Respiratory: denies: cough, dry, shortness of breath, hemoptysis, SOB with excertion, pleuritic pain, sputum, wheezing, other Cardiovascular: denies: chest pain, palpitations, orthopnea, paroxysmal noc. dyspnea, edema, light headedness, other Gastrointestinal: denies: nausea, vomiting, abdominal pain, diarrhea, constipation, melena, hematochezia, other Genitourinary: denies: dysuria, frequency, incontinence, hematuria, retention, other Musculoskeletal: reports: leg pain (with redness and swelling), foot pain Skin: reports: other (erythema of right lower extremity from below knee to her foot) Hospitalist History - Past Medical History Source: patient Cardiac: reports: HTN - Past Surgical History Past Surgical History: reports: Cataract Removal, Hysterectomy, Hernia Repair, Total Hip Replacement, Total Knee Replacement (bilateral), Tonsillectomy, Other (carpal tunnel surgery) Other Surgical History: Allograft to left thumb Posterior lumbar fusion Anterior lumbar fusion Spinal decompression Inguinal hernia repair Toe surgery Right shoulder replacement - Family History Family History: reports: no pertinent history - Social History Smoking Status: Never smoker Alcohol: reports: None Drugs: reports: none - Exam General Appearance: NAD, awake alert Eye: PERRL, anicteric sclera ENT: normocephalic atraumatic, no oropharyngeal lesions, moist mucosa Neck: supple, symmetric, no lymphadenopathy Heart: RRR, no murmur, no gallops, no rubs Respiratory: CTAB, no wheezes, no rales, no ronchi, normal chest expansion, no tachypnea Gastrointestinal: soft, non-tender, non-distended, normal bowel sounds, no guarding, no rigidity Extremities - other findings: 3+ pitting edema RLE foot to knee with erythema Skin - other findings: 2 ulcerated foul smelling wounds to rt lower leg, area of ecchymosis above Psychiatric: normal affect, normal behavior, A&O x 3 Hospitalist Results - Labs Result Diagrams: 07/27/19 15:48 07/27/19 15:48 Lab results: WBC 11.8 thou/uL (4.8-10.8) H 07/27/19 15:48 Hgb 12.1 g/dL (12.0-16.0) 07/27/19 15:48 Hct 37.3 % (36.0-47.0) 07/27/19 15:48 MCV 86.5 fL (78.0-98.0) 07/27/19 15:48 Plt Count 427 thou/uL (130-400) H 07/27/19 15:48 Neutrophils % 73.8 % (42.0-75.0) 07/27/19 15:48 Sodium 138 mmol/L (136-145) 07/27/19 15:48 Potassium 3.8 mmol/L (3.5-5.1) 07/27/19 15:48 Chloride 104 mmol/L (98-107) 07/27/19 15:48 Carbon Dioxide 24 mmol/L (23-31) 07/27/19 15:48 BUN 14 mg/dL (9.8-20.1) 07/27/19 15:48 Creatinine 0.57 mg/dL (0.6-1.1) L 07/27/19 15:48 Glucose 96 mg/dL (83-110) 07/27/19 15:48 Lactic Acid 1.0 mmol/L (0.5-2.2) 07/27/19 15:48 Calcium 9.4 mg/dL (7.8-10.44) 07/27/19 15:48 Total Bilirubin 0.3 mg/dL (0.2-1.2) 07/27/19 15:48 AST 28 U/L (5-34) 07/27/19 15:48 ALT 23 U/L (8-55) 07/27/19 15:48 Alkaline Phosphatase 94 U/L (40-110) 07/27/19 15:48 Serum Total Protein 7.1 g/dL (6.0-8.3) 07/27/19 15:48 Albumin 3.6 g/dL (3.4-4.8) 07/27/19 15:48 Hospitalist H&P A/P - Problem (1) Cellulitis of right lower leg Code(s): L03.115 - CELLULITIS OF RIGHT LOWER LIMB Status: Acute (2) Edema of right lower leg Code(s): R60.0 - LOCALIZED EDEMA Status: Acute (3) History of hypertension Code(s): Z86.79 - PERSONAL HISTORY OF OTHER DISEASES OF THE CIRCULATORY SYSTEM Status: Chronic (4) Obesity Code(s): E66.9 - OBESITY, UNSPECIFIED Status: Chronic - Plan Plan: Continue IV Abx Wound culture and blood cultures pending ID consult Wound care consulted Venous doppler to rule out underlying DVT Add-on BNP to labs. Monitor BP. Resume home meds once verified. CODE STATUS FULL SURROGATE DECISION MAKER: Her Wilfred Todd
[2019-07-27] MEDS: HYDROcodone/Acetaminophen 5/325 mg Tablet PO PRN (22:14)
--- NOTE | 2019-07-27 23:25 | ULT ---
BILATERAL LOWER EXTREMITY VENOUS DUPLEX EXAM: History: Bilateral lower extremity pain and swelling. Redness in the right lower extremity and draini ng wound. FINDINGS: Real-time color doppler evaluation of the right and left lower extremities were performed from groin to calf. This includes evaluation of the common femoral, superficial and profunda femoral, saphenous and popliteal and posterior tibial veins. This shows patent deep venous systems bilaterally. There is normal compressibility and augmentation. There is no evidence of DVT. IMPRESSION: No evidence of DVT of either lower extremity. POS: EULALIO
[2019-07-28] MEDS: HYDROcodone/Acetaminophen 5/325 mg Tablet PO PRN ×5 (02:03→21:07)
[2019-07-28 03:51] VITALS: BMI 28.3
[2019-07-28 05:16] LABS: #Basophils 0.1 thou/uL (0.0-0.2); #Eosinphils 0.4 thou/uL (0.0-0.7); #Lymphocytes 1.5 thou/uL (1.20-3.40); #Monocytes 0.9 thou/uL (0.11-0.59); #Neutrophils 6.8 thou/uL (1.40-6.50); %Basophils 0.6 % (0.0-1.0); %Eosinophils 4.4 % (0.0-10.0); %Lymphocytes 15.6 % (21.0-51.0); %Monocytes 9.6 % (0.0-10.0); %Neutrophils 69.9 % (42.0-75.0); Hemoglobin 11.2 g/dL (12.0-16.0); Mean Corpuscular HGB CONC 32.5 g/dL (32.0-36.0); Mean Corpuscular Hemoglobin 28.3 pg (27.0-31.0); Mean Platelet Volume 7.3 fL (7.4-10.4); Platelet Count 372 thou/uL (130-400); RBC Distribution Width 14.3 % (11.5-14.5); Red Blood Cell (RBC) Count 3.96 mill/uL (4.20-5.40); White Blood Cell (WBC) Count 9.7 thou/uL (4.8-10.8)
[2019-07-28] MEDS: Cefepime 2 GM in Sodium Chloride 0.9% 100 ML IVPB SCH ×2 (05:20→15:33)
[2019-07-28] MEDS: Vancomycin 1 GM in Premix Bag 1 BAG IVPB SCH ×2 (05:21→15:33)
[2019-07-28 05:41] LABS: Anion Gap 12 mmol/L (10-20); BUN (Urea Nitrogen) 12 mg/dL (9.8-20.1); Calc. Creatinine Clearance 101 mL/min (70-130); Calcium 8.6 mg/dL (7.8-10.44); Carbon Dioxide 21 mmol/L (23-31); Chloride 106 mmol/L (98-107); Estimated GFR-MDRD Greater than 90; Glucose 95 mg/dL (83-110); Potassium 3.8 mmol/L (3.5-5.1); Sodium 135 mmol/L (136-145)
[2019-07-28] MEDS ORDERED: Mag-Al 1200 mg/1200 mg/30 ML UDCUP PO PRN (10:10)
[2019-07-28] MEDS ORDERED: Calcium Carbonate 500 MG ChewTAB PO PRN (10:10)
[2019-07-28] MEDS ORDERED: Famotidine 20 MG TAB PO SCH (10:15)
--- NOTE | 2019-07-28 11:58 | PDOC.HOSPP ---
- Subjective Encounter Date: 07/28/19 Encounter Time: 11:30 Subjective: Patient seen and examined for cellulitis. No fever or chills. No new complaints. No overnight events - Objective Vital Signs & Weight: Vital Signs (12 hours) Temp Pulse Resp BP Pulse Ox 07/28/19 07:00 98.4 F 74 18 166/84 H 96 07/28/19 03:00 98.2 F 77 18 144/74 H 95 Weight Weight 165 lb 5.547 oz Result Diagrams: 07/28/19 04:57 07/28/19 04:57 Additional Labs: Microbiology 07/27/19 15:48 Venous blood - Left Arm Blood Culture - Preliminary Specimen has been received and culture in progress. No Growth to date. 07/27/19 15:46 Leg - Wound Bacterial Culture - Preliminary Gram Negative Elder 07/27/19 15:43 Venous blood - Right Hand Blood Culture - Preliminary Specimen has been received and culture in progress. No Growth to date. Radiology Reviewed by me: No (Doppler - No DVT) Hospitalist ROS - Review of Systems Respiratory: denies: cough, dry, shortness of breath, hemoptysis, SOB with excertion, pleuritic pain, sputum, wheezing, other Cardiovascular: denies: chest pain, palpitations, orthopnea, paroxysmal noc. dyspnea, edema, light headedness, other - Medication Medications: Active Medications Generic Name Dose Route Start Last Admin Trade Name Freq PRN Reason Stop Dose Admin Hydrocodone Bitart/Acetaminophen 1 tab 07/27/19 20:47 07/28/19 08:22 [place] 5/325 PO 1 tab Q4H PRN Administration Moderate Pain (4-6) Famotidine 20 mg 07/28/19 10:15 07/28/19 11:49 Pepcid PO 07/28/19 12:00 20 mg NOW VANESA Administration Cefepime HCl 2 gm/ Sodium 100 mls @ 200 mls/hr 07/28/19 04:00 07/28/19 05:20 Chloride IVPB 100 mls 0400,1600 VANESA Administration Vancomycin HCl 1 gm/ Device 200 mls @ 200 mls/hr 07/28/19 05:00 07/28/19 05: 21 IVPB 200 mls 0500,1700 VANESA Administration Pneumococcal 13-Valent Conj Vacc 0.5 ml 07/28/19 21:00 07/28/19 04:33 Prevnar IM 07/28/19 21:01 Not Given .ONCE ONE - Exam General Appearance: NAD Neck: supple, no JVD Heart: RRR, no gallops Respiratory: no wheezes, no ronchi Extremities: 2+ LE edema (with significant erythema/warmth/tenderness. Dressing +) Hosp A/P - Plan RLE cellulitis - failed outpt Rx HTN Hyponatremia GERD PLAN: Cont IV Vancomycin/Cefepime Await ID input Add Pepcid Resume home meds Cont wound care Monitor Vancomycin level
[2019-07-28] MEDS ORDERED: Amlodipine 5 MG TAB PO SCH (12:15)
--- NOTE | 2019-07-28 13:23 | CON ---
DATE OF CONSULTATION: 07/28/2019 REASON FOR CONSULT: Ulcer with cellulitis, right leg. HISTORY OF PRESENT ILLNESS: A 79-year-old who has a history of recurrent UTIs and chronic venous insufficiency, who developed an ulcer in the right leg lateral aspect and subsequently a second ulcer for the past many weeks to months and she went to Wound Care evaluation at [facility] and now is admitted because of pain in the right leg. She denied any headaches, no visual symptoms, sore throat, odynophagia, or dysphagia. No neck pain. No shortness of breath or chest pain. No abdominal pain or diarrhea. No genitourinary symptoms. No other joint symptoms. She has chronic stasis changes in the lower extremities. PAST MEDICAL HISTORY: Includes hypertension, recurrent urinary tract infections , prior admission with invasive UTI with bacteremia, atypical chest pain. SURGICAL HISTORY: Lumbar fusion, right knee replacement, inguinal hernia repair , removal of instrumentation from fusion in the back, left hip replacement, right hip replacement, left knee replacement, hammertoe surgery, cataract surgery, and a number of other surgical interventions. ALLERGIES: NONE. CURRENT MEDICATIONS: 1. P.r.n. medications. 2. Norvasc. 3. Ecotrin. 4. Cefepime. 5. Pepcid. 6. Prevnar. 7. Vancomycin. FAMILY HISTORY: Noncontributory. SOCIAL HISTORY: Never a smoker, lives in [place] with family. PHYSICAL EXAMINATION: VITAL SIGNS: Temperature normal, blood pressure 160/75, pulse 67, respirations 18, and O2 saturation 97%. SKIN: Three ulcers measuring about 4 to 5 cm one, the other one is more like 2.5 cm and the third one is about 1.5 cm with a necrotic base. The smaller one is a bit the deeper. They are kind of oval shaped. There is a pink colored erythema surrounding this area with some hyperkeratosis. There is evidence of stasis dermatitis in the lower extremities, particularly on the left side. There is no lymph lymphadenopathy. HEENT: Normal ocular movements. Oral cavity was not remarkable. NECK: Supple, no jugular vein distention. LUNGS: Symmetric, clear breath sounds. HEART: S1 and S2. Regular rate. No S3 or S4. ABDOMEN: Soft, not distended or tender. No ascites. No bladder distention. MUSCULOSKELETAL: No joint inflammatory activity. Pulses are 1+ in dorsalis pedis and popliteals. Cap refill is normal. There is edema which is pitting edema in lower extremities. She is able to move extremities equally with some limitations from the pain. Her cognitive function appears to be intact including normal speech, recollection, and orientation. LABORATORY DATA: White cell count is 11.8, down to 9.7; hemoglobin 11.2; platelets 372, which is down from 427. Sodium 138, creatinine was 0.57. Liver profile normal. We have a gram-negative aileen which is retrieved from one of the leg wounds. Two sets of blood culture, no growth thus far. A lower extremity CT with findings consistent with cellulitis. ASSESSMENT: Venous insufficiency, stasis dermatitis, chronic venous stasis ulcerations and now with some [id number] cellulitis. DISCUSSION: The patient may have gram-negative aileen cellulitis and we will wait for the final identification. Continue cefepime, discontinue vancomycin and request that Wound Care place a Unna boot or similar compression dressing and she will have to wear this compression dressing for the next few weeks until there is healing of the ulcers and after that transition to a compression stocking or compression wrap. Oral antimicrobials pending culture results. JESSICA DRISCOLL for secondary prophy. Job ID: [id number] MTDD
[2019-07-28] MEDS ORDERED: Prevnar 13-Val Conj/PF 0.5 ML SYRINGE IM ONE (21:00)
[2019-07-28] MEDS: Famotidine 20 MG TAB PO SCH (21:07)
[2019-07-28] MEDS: Aspirin 81 mg Enteric Coated Tablet PO SCH (21:07)
[2019-07-29] MEDS: HYDROcodone/Acetaminophen 5/325 mg Tablet PO PRN ×3 (00:44→21:43)
[2019-07-29 05:10] LABS: Vancomycin, Trough 11.3 ug/mL
[2019-07-29] MEDS: Cefepime 2 GM in Sodium Chloride 0.9% 100 ML IVPB SCH ×2 (05:48→15:26)
[2019-07-29] MEDS: Vancomycin 1 GM in Premix Bag 1 BAG IVPB SCH (05:48)
[2019-07-29] MEDS: Amlodipine 5 MG TAB PO SCH (07:58)
[2019-07-29] MEDS: Famotidine 20 MG TAB PO SCH ×2 (07:58→21:43)
--- NOTE | 2019-07-29 18:08 | PDOC.HOSPP ---
- Subjective Encounter Date: 07/29/19 Encounter Time: 14:00 Subjective: Patient seen and examined for cellulitis. No new fever or chills. RLE erythema improving. No new complaints. No overnight events - Objective Vital Signs & Weight: Vital Signs (12 hours) Temp Pulse Resp BP Pulse Ox 07/29/19 07:58 18 L 07/29/19 07:57 99.9 F H 74 16 157/79 H 94 L Weight Admit Weight 165 lb 5.547 oz Weight 165 lb 5.547 oz I&O: 07/28/19 07/29/19 07/30/19 06:59 06:59 06:59 Intake Total 720 Balance 720 Result Diagrams: 07/28/19 04:57 07/28/19 04:57 Additional Labs: Microbiology 07/27/19 15:48 Venous blood - Left Arm Blood Culture - Preliminary NO GROWTH AT 48 HOURS 07/27/19 15:46 Leg - Wound Bacterial Culture - Preliminary Gram Negative Elder Gram Negative Elder#3 07/27/19 15:43 Venous blood - Right Hand Blood Culture - Preliminary NO GROWTH AT 48 HOURS Hospitalist ROS - Review of Systems Respiratory: denies: cough, dry, shortness of breath, hemoptysis, SOB with excertion, pleuritic pain, sputum, wheezing, other Cardiovascular: denies: chest pain, palpitations, orthopnea, paroxysmal noc. dyspnea, edema, light headedness, other Gastrointestinal: denies: nausea, vomiting, abdominal pain, diarrhea, constipation, melena, hematochezia, other - Medication Medications: Active Medications Generic Name Dose Route Start Last Admin Trade Name Freq PRN Reason Stop Dose Admin Hydrocodone Bitart/Acetaminophen 1 tab 07/27/19 20:47 07/29/19 14:36 [place] 5/325 PO 1 tab Q4H PRN Administration Moderate Pain (4-6) Amlodipine Besylate 5 mg 07/29/19 09:00 07/29/19 07:58 Norvasc PO 5 mg DAILY VANESA Administration Aspirin 81 mg 07/28/19 21:00 07/28/19 21:07 Ecotrin PO 81 mg HS VANESA Administration Famotidine 20 mg 07/28/19 21:00 07/29/19 07:58 Pepcid PO 20 mg BID VANESA Administration Cefepime HCl 2 gm/ Sodium 100 mls @ 200 mls/hr 07/28/19 04:00 07/29/19 15:26 Chloride IVPB 100 mls 0400,1600 VANESA Administration - Exam General Appearance: NAD Heart: RRR, no gallops Respiratory: no wheezes, no ronchi Gastrointestinal: non-tender, normal bowel sounds Extremities: 2+ LE edema Extremities - other findings: improving erythema/warmth Hosp A/P - Plan DVT proph w/SCDs RLE cellulitis/infected venous stasis ulcerations - failed outpt Rx Chronic venous stasis HTN Hyponatremia GERD PLAN: Cont IV Cefepime ID input input appreciated Cont other meds as above Await cultures [facility] setup Cont wound care
[2019-07-29] MEDS: Aspirin 81 mg Enteric Coated Tablet PO SCH (21:43)
[2019-07-30] MEDS: HYDROcodone/Acetaminophen 5/325 mg Tablet PO PRN ×2 (02:17→09:01)
[2019-07-30] MEDS: Cefepime 2 GM in Sodium Chloride 0.9% 100 ML IVPB SCH (05:08)
[2019-07-30 07:18] VITALS: BP 155/73; TEMP 99.2
[2019-07-30] MEDS: Amlodipine 5 MG TAB PO SCH (08:15)
[2019-07-30] MEDS: Famotidine 20 MG TAB PO SCH (08:15)
--- NOTE | 2019-07-30 09:03 | PDOC.HOSPP ---
- Subjective Encounter Date: 07/30/19 Encounter Time: 09:03 Subjective: Patient seen and examined for RLE cellulitis. No fever or chills. No new complaints. No overnight events - Objective Vital Signs & Weight: Vital Signs (12 hours) Temp Pulse Resp BP Pulse Ox 07/30/19 08:15 71 07/30/19 07:13 99.2 F 71 16 155/73 H 96 Weight Admit Weight 165 lb 5.547 oz Weight 165 lb 5.547 oz I&O: 07/29/19 07/30/19 07/31/19 06:59 06:59 06:59 Intake Total 720 Balance 720 Result Diagrams: 07/28/19 04:57 07/28/19 04:57 Additional Labs: Microbiology 07/27/19 15:48 Venous blood - Left Arm Blood Culture - Preliminary NO GROWTH AT 48 HOURS 07/27/19 15:46 Leg - Wound Bacterial Culture - Preliminary Morganella morganii ssp aggie Gram Negative Elder#3 Presumptive Enterococcus sp. 07/27/19 15:43 Venous blood - Right Hand Blood Culture - Preliminary NO GROWTH AT 48 HOURS Hospitalist ROS - Review of Systems Cardiovascular: denies: chest pain, palpitations, orthopnea, paroxysmal noc. dyspnea, edema, light headedness, other Gastrointestinal: denies: nausea, vomiting, abdominal pain, diarrhea, constipation, melena, hematochezia, other - Medication Medications: Active Medications Generic Name Dose Route Start Last Admin Trade Name Freq PRN Reason Stop Dose Admin Hydrocodone Bitart/Acetaminophen 1 tab 07/27/19 20:47 07/30/19 09:01 [place] 5/325 PO 1 tab Q4H PRN Administration Moderate Pain (4-6) Amlodipine Besylate 5 mg 07/29/19 09:00 07/30/19 08:15 Norvasc PO 5 mg DAILY VANESA Administration Aspirin 81 mg 07/28/19 21:00 07/29/19 21:43 Ecotrin PO 81 mg HS VANESA Administration Famotidine 20 mg 07/28/19 21:00 07/30/19 08:15 Pepcid PO 20 mg BID VANESA Administration Cefepime HCl 2 gm/ Sodium 100 mls @ 200 mls/hr 07/28/19 04:00 07/30/19 05:08 Chloride IVPB 100 mls 0400,1600 VANESA Administration - Exam General Appearance: NAD Neck: supple, no JVD Heart: no gallops, no rubs Respiratory: no wheezes, no rales, no ronchi Gastrointestinal: non-tender, non-distended, normal bowel sounds Extremities: 2+ LE edema Extremities - other findings: improving warmth/tenderness RLE Hosp A/P - Plan DVT proph w/SCDs RLE cellulitis/infected venous stasis ulcerations - failed outpt Rx Chronic venous stasis HTN Hyponatremia GERD PLAN: Cont IV Cefepime Await cultures DC later today if ok with ID Cont other meds as above Outpt wound care setup
[2019-07-30] MEDS ORDERED: traMADol HCl 50 MG TAB PO PRN (09:33)
--- NOTE | 2019-07-30 11:28 | DIS ---
DATE OF ADMISSION: 07/27/2019 DATE OF DISCHARGE: 07/30/2019 DISCHARGE DISPOSITION: Home. FOLLOWUP: 1. Follow up with primary care physician, Dr. Mitchel Fountain in 1 week. 2. Follow up with Dr. Ha in 2 weeks. ALLERGIES: NO KNOWN DRUG ALLERGIES. THE PATIENT WAS SEEN AND EXAMINED ON THE DAY OF DISCHARGE. DISCHARGE MEDICATIONS: 1. Ciprofloxacin 500 mg twice daily for 1 week. 2. Keflex 500 mg every 6 hourly for 1 week. 3. Penicillin V 250 mg twice daily for 6 months after completion of ciprofloxacin and Keflex. 4. Tramadol as needed. 5. Florastor 250 mg daily. All other home medications were left unchanged. BRIEF HOSPITAL COURSE: The patient is a 79-year-old female with chronic venous insufficiency with right lower extremity ulceration, presented to the emergency room with swelling and erythema of the right lower extremity. Her workup was consistent with cellulitis superimposed on chronic venous stasis ulceration along with stasis dermatitis. She showed good improvement with IV antibiotics. Wound culture showed multiple skin roman. Blood culture remained negative. She was evaluated by Infectious Disease, Dr. Ha. Dr. Ha recommended discharging her on ciprofloxacin along with Keflex for 1 week followed by penicillin VK for 6 months. She was advised to follow up with outpatient wound care. FINAL DIAGNOSES: 1. Right lower extremity cellulitis with chronic venous stasis ulceration. 2. Chronic venous insufficiency. 3. Stasis dermatitis. 4. Hypertension. 5. Hyponatremia. 6. Gastroesophageal reflux disease. 7. Acute pain secondary to #1. 8. The patient understands the above plan of care. 9. The patient understands the risk associated with antibiotics. Job ID: [id number]
== END 2019-07-30 14:59 | disposition home or self-care (01) ==
LOC: ERS 15:24 → INTOOBSV 18:25 → T4-A 18:25
PROVIDERS: ADMIT Internal Medicine; ATTEND Internal Medicine
DX: L03.115 Cellulitis of right lower limb (principal); I83.018 Varicose veins of right lower extremity with ulcer other part of lower leg; L97.819 Non-pressure chronic ulcer of other part of right lower leg with unspecified severity; I87.2 Venous insufficiency (chronic) (peripheral); I10 Essential (primary) hypertension; E87.1 Hypo-osmolality and hyponatremia; K21.9 Gastro-esophageal reflux disease without esophagitis; E66.9 Obesity, unspecified; Z68.28 Body mass index [BMI] 28.0-28.9, adult; Z79.82 Long term (current) use of aspirin; Z79.899 Other long term (current) drug therapy
CPT/HCPCS: 73701; 80048; 80053; 80202; 83605; 83880; 85025 ×2; 87040; 87070; 87077; 87186; 87205; 93970; 96365; 96367; 96376 ×3; 97139 ×4; 97530; 99284; G0378 ×5; 36415; J0692; J3370; J3490; Q9967

== ENCOUNTER 2020-01-16 07:01 | Outpatient (CLI) | payer MEDICARE, OTHER ==
[2020-01-17 14:53] LABS: SARS-CoV-2 MS2 Positive; SARS-CoV-2 N Gene Negative; SARS-CoV-2 S Gene Negative; SARS-CoV-2 by NAA Not Detected (NotDetected); SARS-CoV-2 orf1ab Negative
== END 2020-01-16 07:02 | disposition home or self-care (01) ==
LOC: LABBT 07:01
PROVIDERS: ATTEND Neurological Surgery
DX: G95.9 Disease of spinal cord, unspecified (principal); Z20.828 Contact with and (suspected) exposure to other viral communicable diseases
CPT/HCPCS: 87635; U0003

== ENCOUNTER 2020-01-21 06:55 | Day surgery (SDC) | payer MEDICARE, OTHER ==
[2020-01-19 10:32] VITALS: BMI 30.9
--- NOTE | 2020-01-20 21:56 | HP ---
HISTORY OF PRESENT ILLNESS: Ms. Todd is known to us for prior ACDF, who returns now with symptoms of cervical myelopathy. She has several prior neck surgeries, both anterior and posterior, with a new MRI that reveals T2 signal change at C6-7 which would certainly account for her ataxia and other myelopathic symptoms. We obtained a CT scan to re-evaluate what bone is still present after all of her prior surgeries. She has a spondylolisthesis at C6-7 where she has prior ACDF, which appears to be fused across; however, she still has significant central canal stenosis secondary to posterior element hypertrophy. She hopes to discuss surgical intervention. PAST MEDICAL HISTORY: Significant for arthritis and hypertension. PAST SURGICAL HISTORY: Tonsillectomy; hysterectomy; unspecified thumb surgery; lumbar fusion and decompression; total knee replacement, right; inguinal hernia repair; cataracts; left total knee; ACDF; posterior cervical fusion; carpal tunnel release bilaterally. CURRENT MEDICATIONS: 1. Aspirin. 2. Amlodipine. ALLERGIES: NO KNOWN DRUG ALLERGIES. PHYSICAL EXAMINATION: Reveals gait abnormality with unsteadiness of gait and slight ataxia. Bilateral upper extremities reveal 4/5 strength in all movements with decreased watch repair person strength and sensation distally. ASSESSMENT: Cervical myelopathy. PLAN: Dr. Hagan met with the patient, reviewed imaging and advocated for C6-7 posterior laminectomy. He explained to the patient the risks, benefits, and alternatives to the procedure. The patient expressed understanding and elected to move forward with surgery as discussed. I do believe the patient is mentally competent capable of making medical decisions for herself. We will move forward with surgery as planned. Job ID: [id number]
[2020-01-21] MEDS ORDERED: Thrombin 5000 UNITS/5 ML VIAL ONE (08:04)
[2020-01-21] MEDS ORDERED: Bupivacaine HCl 0.5%/Epinephrine 1:200,000/PF 30 ml Vial ONE (08:04)
[2020-01-21] MEDS ORDERED: Fentanyl 100 MCG/2 ML VIAL ONE (08:10)
[2020-01-21 09:09] LABS: Anion Gap 17 mmol/L (10-20); BUN (Urea Nitrogen) 15 mg/dL (9.8-20.1); Calc. Creatinine Clearance 91 mL/min (70-130); Carbon Dioxide 19 mmol/L (23-31); Chloride 109 mmol/L (98-107); Estimated GFR-MDRD 88; Glucose 87 mg/dL (83-110); Potassium 4.7 mmol/L (3.5-5.1); Sodium 140 mmol/L (136-145)
--- NOTE | 2020-01-21 09:52 | OP ---
DATE OF PROCEDURE: 01/21/2020 TWISTING MACHINE OPERATOR: Frankie Gomez PA-C INDICATION: Prevent neurologic decline. 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 PROCEDURE PERFORMED: Posterior cervical decompression, C6-C7. ANESTHESIA: General. DESCRIPTION OF PROCEDURE: The patient was brought into the operating room and placed under general anesthesia. She was carefully flipped from a supine to prone position, maintaining neutrality of her neck. A posterior cervical incision was planned over the C6-C7 area. After prepping and draping and after an appropriate preoperative pause, the incision was created. The soft tissues were swept away from midline. A self-retaining retractor was placed for optimal exposure. After confirming the appropriate level with C-arm fluoroscopy, laminectomy was performed along the inferior aspect of C6 and superior aspect of C7 to decompress the spinal canal of this area. The patient was not fused posteriorly as she has anterior fusion construct present. After completing the decompression, the wound was irrigated. Hemostasis was maintained throughout. The wound was then closed in anatomic layers, and a pressure dressing was applied. There were no known procedural complications. Job ID: [id number]
[2020-01-21] MEDS ORDERED: Ondansetron PF 4 MG/2 ML Vial ONE (10:56)
[2020-01-21] MEDS ORDERED: PROPOFOL 200 MG/20 ML VIAL ONE (10:56)
[2020-01-21] MEDS ORDERED: Ketorolac Tromethamine 30 MG/ML VIAL ONE (10:56)
[2020-01-21] MEDS ORDERED: Rocuronium Bromide 10 MG/ML (10ML VIAL) ONE (10:56)
[2020-01-21] MEDS ORDERED: EPHEDRINE 25 MG/5 ML SYRINGE ONE (10:56)
[2020-01-21] MEDS ORDERED: PHENYLEPHRINE-NS 100 MCG/ML 10 ML SYRINGE ONE (10:56)
[2020-01-21] MEDS ORDERED: Lidocaine 1% PF 5 ML VIAL ONE (10:56)
[2020-01-21] MEDS ORDERED: Glycopyrrolate 0.2 MG/ML 5 ML SYRINGE ONE ×2 (10:56)
[2020-01-21] MEDS ORDERED: Acetaminophen/Codeine 30-300mg Tablet ONE (11:43)
--- NOTE | 2020-01-21 15:09 | EKG ---
Test Reason : PREOP Blood Pressure : / mmHG Vent. Rate : 065 BPM Atrial Rate : 065 BPM P-R Int : 190 ms QRS Dur : 086 ms QT Int : 424 ms P-R-T Axes : 059 -25 -10 degrees QTc Int : 440 ms Normal sinus rhythm Normal ECG No previous ECGs available Confirmed by ANGEL KOWALSKI ([id number]) on 01/21/2020 3:09:24 PM Referred By: SIRENA Confirmed By:ANGEL KOWALSKI
== END 2020-01-21 12:05 | disposition home or self-care (01) ==
LOC: SDC 06:55
PROVIDERS: ATTEND Neurological Surgery
PROC: 00NW0ZZ Release Cervical Spinal Cord, Open Approach (ICD-10-PCS; principal; 2020-01-21)
DX: M47.12 Other spondylosis with myelopathy, cervical region (principal); M48.02 Spinal stenosis, cervical region; I10 Essential (primary) hypertension; M19.90 Unspecified osteoarthritis, unspecified site; Z79.1 Long term (current) use of non-steroidal anti-inflammatories (NSAID); Z79.2 Long term (current) use of antibiotics; Z79.82 Long term (current) use of aspirin; Z79.899 Other long term (current) drug therapy; Z91.048 Other nonmedicinal substance allergy status; Z98.1 Arthrodesis status
CPT/HCPCS: 36415; 76000; 80048; 93005; 93010; J0670; J0690; J1885; J2405; J2704; J3010

== ENCOUNTER 2020-06-29 10:17 | Outpatient (CLI) | payer MEDICARE, OTHER ==
[2020-06-30 02:20] LABS: SARS-CoV-2 PCR by NAA Not Detected (NotDetected)
== END 2020-06-29 10:18 | disposition home or self-care (01) ==
LOC: LABBT 10:17
PROVIDERS: ATTEND Neurological Surgery
DX: Z01.812 Encounter for preprocedural laboratory examination (principal); Z20.822 Contact with and (suspected) exposure to COVID-19
CPT/HCPCS: U0003; U0005; 87635

== ENCOUNTER 2020-07-02 05:38 | Day surgery (SDC) | payer MEDICARE, OTHER ==
[2020-07-01 09:41] VITALS: BMI 33.6
[2020-07-02] MEDS ORDERED: Fentanyl 100 MCG/2 ML VIAL ONE (06:28)
[2020-07-02] MEDS ORDERED: EPINEPHrine 1 MG/ML AMP ONE (06:29)
[2020-07-02] MEDS ORDERED: Bupivacaine PF 0.5% 30 ML VIAL ONE (06:29)
[2020-07-02] MEDS ORDERED: hydrALAZINE 20 MG/ML VIAL ONE (08:35)
[2020-07-02] MEDS ORDERED: Dexamethasone 20 MG/5 ML VIAL ONE (09:23)
[2020-07-02] MEDS ORDERED: Ondansetron PF 4 MG/2 ML Vial ONE (09:23)
[2020-07-02] MEDS ORDERED: PHENYLEPHRINE-NS 100 MCG/ML 10 ML SYRINGE ONE (09:23)
[2020-07-02] MEDS ORDERED: PROPOFOL 200 MG/20 ML VIAL ONE (09:23)
[2020-07-02] MEDS ORDERED: Lidocaine 1% PF 5 ML VIAL ONE (09:23)
[2020-07-02] MEDS ORDERED: ePHEDrine 50 MG/ML VIAL ONE (09:23)
[2020-07-02] MEDS ORDERED: diphenhydrAMINE 50 MG/ML VIAL ONE (09:23)
== END 2020-07-02 11:15 | disposition home or self-care (01) ==
LOC: SDC 05:38
PROVIDERS: ATTEND Neurological Surgery
PROC: 01N40ZZ Release Ulnar Nerve, Open Approach (ICD-10-PCS; principal; 2020-07-02)
DX: G56.22 Lesion of ulnar nerve, left upper limb (principal); Z79.82 Long term (current) use of aspirin; Z91.048 Other nonmedicinal substance allergy status
CPT/HCPCS: J0171; J0360; J0690; J1100; J1200; J2405; J2704; J3010; J3490; S0020

== ENCOUNTER 2020-07-08 10:10 | Outpatient (CLI) | payer MEDICARE, OTHER ==
[2020-07-08 10:59] LABS: Estimated GFR-MDRD - POC Greater than 90
[2020-07-08] MEDS ORDERED: Iopamidol-370 76% 500 ML 1 ML ONE (14:47)
== END 2020-07-08 10:11 | disposition home or self-care (01) ==
LOC: BICCT 10:10
PROVIDERS: ATTEND Internal Medicine Cardiovascular Disease
DX: R59.1 Generalized enlarged lymph nodes (principal); I70.0 Atherosclerosis of aorta; J98.11 Atelectasis; Z98.890 Other specified postprocedural states
CPT/HCPCS: 74177; 82565; Q9967

== ENCOUNTER 2021-12-06 13:24 | Outpatient (CLI) | payer MEDICARE, OTHER | END 2021-12-06 13:25 | disposition home or self-care (01) | LOC: BICMAMMO 13:24 | PROVIDERS: ATTEND Neurological Surgery | DX: M81.0 Age-related osteoporosis without current pathological fracture (principal); M85.831 Other specified disorders of bone density and structure, right forearm | CPT/HCPCS: 77080 ==

== ENCOUNTER 2022-07-07 09:41 | Outpatient (CLI) | payer MEDICARE, OTHER | END 2022-07-07 09:42 | disposition home or self-care (01) | LOC: BICCT 09:41 | PROVIDERS: ATTEND Internal Medicine Cardiovascular Disease | DX: L97.912 Non-pressure chronic ulcer of unspecified part of right lower leg with fat layer exposed (principal); I73.9 Peripheral vascular disease, unspecified | CPT/HCPCS: 75635; 82565 ==

== ENCOUNTER 2022-08-08 10:07 | Outpatient (CLI) | payer MEDICARE, OTHER | END 2022-08-08 10:08 | disposition home or self-care (01) | LOC: BICMAMMO 10:07 | PROVIDERS: ATTEND Family Medicine | DX: Z12.31 Encounter for screening mammogram for malignant neoplasm of breast (principal) | CPT/HCPCS: 77063; 77067 ==